=== PATIENT | female | born 1940 | race Caucasian/White ===

== ENCOUNTER 2025-04-16 09:10 | Inpatient (IN) | payer MEDICARE, OTHER ==
[~2025-04-16] VITALS: Ht 172.7 cm; Wt 68.0 kg
[2025-04-16] MEDS: HYDROMORPHONE 1 MG/1 ML DISP.SYRIN IV ONE (12:06)
[2025-04-16] MEDS ORDERED: HYDROCODONE/APAP 10-325 MG TABLET ONE (12:25)
[2025-04-16] MEDS: HYDROCODONE/APAP 10-325 MG TABLET PO ONE (12:29)
[2025-04-16 13:50] VITALS: BP 135/74; TEMP 97.6; O2SAT 98
[2025-04-16] MEDS ORDERED: ASPI81TA31 PO (14:49)
[2025-04-16] MEDS ORDERED: AMLO5TAB4 PO (14:49)
[2025-04-16] MEDS ORDERED: CETI10CA8 PO (14:49)
[2025-04-16] MEDS ORDERED: ESCI20TA PO (14:50)
[2025-04-16] MEDS ORDERED: TRAZ-182 PO (14:50)
[2025-04-16] MEDS ORDERED: ROSU5TAB13 PO (14:50)
[2025-04-16] MEDS ORDERED: DONE10TA44 PO (14:50)
[2025-04-16] MEDS ORDERED: HYDR-894 PO ×2 (14:50)
[2025-04-16] MEDS ORDERED: MULT-225 PO (14:50)
[2025-04-16] MEDS ORDERED: DIVA125C5 PO (14:50)
[2025-04-16] MEDS ORDERED: [UNRECOGNIZED DRUG - CODE] PO (14:50)
[2025-04-16] MEDS ORDERED: FOLI1TAB27 PO (14:50)
[2025-04-16] MEDS ORDERED: ALBU0.63 NEB (14:50)
[2025-04-16] MEDS ORDERED: ONDA4TAB5 PO (14:50)
[2025-04-16] MEDS ORDERED: ONDANSETRON 4 MG/2 ML VIAL IV PRN (16:00)
[2025-04-16] MEDS ORDERED: MAGNESIUM HYDROXIDE 30 ML LIQUID UDC PO PRN (16:00)
[2025-04-16] MEDS ORDERED: REMEDY ESSENTIAL ZINC PASTE 113 GM TP PRN (16:00)
[2025-04-16] MEDS ORDERED: ACETAMINOPHEN 325 MG TABLET PO PRN (16:00)
[2025-04-16] MEDS ORDERED: ZOLPIDEM 5 MG TABLET PO PRN (16:00)
[2025-04-16] MEDS ORDERED: ESCI5TAB16 PO (16:51)
[2025-04-16] MEDS ORDERED: ESOM40CA52 PO (16:51)
[2025-04-16] MEDS ORDERED: ONDA8TAB13 PO (16:52)
[2025-04-16] MEDS ORDERED: ALBU2.5V38 NEB (16:54)
[2025-04-16] MEDS ORDERED: HYDR-500 PO (16:57)
[2025-04-16] MEDS ORDERED: ALBUTEROL SULFATE 2.5 MG/3 ML NEBU NEB PRN (18:30)
[2025-04-16 19:25] VITALS: BP 123/69; TEMP 97.7; O2SAT 95
[2025-04-16] MEDS ORDERED: GUAIFENESIN/DEXTROMETHORPHAN 5 ML UDC PO PRN (20:00)
[2025-04-16] MEDS: ENOXAPARIN SODIUM 40 MG/0.4 ML DISP.SYRIN SQ SCH (21:00)
[2025-04-16 21:53] VITALS: BP 123/69; TEMP 97.7; O2SAT 95
[2025-04-16] MEDS: TRAZODONE 50 MG TABLET PO SCH (22:04)
[2025-04-16] MEDS: ATORVASTATIN 10 MG TABLET PO SCH (22:04)
[2025-04-17 04:20] VITALS: BP 112/66; TEMP 97.5; O2SAT 98
[2025-04-17] MEDS: PANTOPRAZOLE SODIUM 40 MG TABLET.DR PO SCH (06:50)
[2025-04-17 06:59] LABS: BASOPHILS # (AUTO) 0.1 K/UL (0.0-0.2); BASOPHILS % (AUTO) 0.7 % (0.0-2.0); EOSINOPHILS # (AUTO) 0.9 K/uL (0.0-0.7); EOSINOPHILS % (AUTO) 11.3 % (0.0-7.0); HEMATOCRIT 40.6 % (31.2-41.9); HEMOGLOBIN 13.6 g/dL (10.9-14.3); LYMPHOCYTES # (AUTO) 2.1 K/uL (0.8-4.8); LYMPHOCYTES % (AUTO) 24.9 % (20.5-51.5); MEAN CORPUSCULAR HEMOGLOBIN 31.2 uug (24.7-32.8); MEAN CORPUSCULAR HGB CONC 34 g/dL (32.3-35.6); MEAN CORPUSCULAR VOLUME 93.1 fL (75.5-95.3); MONOCYTES # (AUTO) 0.9 K/uL (0.1-1.30); MONOCYTES % (AUTO) 10.9 % (0.0-11.0); NEUTROPHILS # (AUTO) 4.3 K/uL (1.8-8.9); NEUTROPHILS % (AUTO) 52.2 % (38.5-71.5); PLATELET COUNT (AUTO) 202 K/uL (179-408); RED BLOOD CELL COUNT(AUTO) 4.36 MIL/uL (3.63-4.92); RED CELL DISTRIBUTION WIDTH 14.7 % (12.3-17.7); WHITE BLOOD COUNT (AUTO) 8.3 K/uL (3.8-11.8)
[2025-04-17 07:02] LABS: DIFFERENTIAL COMMENT 1
[2025-04-17 07:08] LABS: CALCIUM 9.3 mg/dL (8.5-10.1); CARBON DIOXIDE 26 mmol/L (21-32); CHLORIDE 107 mmol/L (98-107); CREATININE 0.8 mg/dL (0.6-1.3); GLUCOSE 93 mg/dL (74-106); PHOSPHOROUS 4.4 mg/dL (2.5-4.9); POTASSIUM 3.9 mmol/L (3.5-5.1); SODIUM SERUM 142 mmol/L (136-145); UREA NITROGEN, BLOOD 14 mg/dL (7-18)
[2025-04-17 07:19] LABS: THYROID STIMULATING HORMONE 4.767 mIU/mL (0.358-3.740)
[2025-04-17] MEDS: ASPIRIN 81 MG TAB.CHEW PO SCH (08:20)
[2025-04-17] MEDS: AMLODIPINE 5 MG TABLET PO SCH (08:21)
[2025-04-17] MEDS: DIVALPROEX SPRINKLE 125 MG CAP.SPRINK PO SCH (08:21)
[2025-04-17] MEDS: CETIRIZINE HCL 10 MG TABLET PO SCH (08:21)
[2025-04-17] MEDS: ESCITALOPRAM OXALATE 10 MG TABLET PO SCH (08:21)
[2025-04-17] MEDS: MULTIVITAMINS,THERAPEUTIC TABLET PO SCH (08:21)
[2025-04-17] MEDS: DONEPEZIL 10 MG TABLET PO SCH (08:21)
[2025-04-17] MEDS ORDERED: PANTOPRAZOLE SODIUM 40 MG TABLET.DR PO SCH (09:00)
[2025-04-17] MEDS ORDERED: FOLIC ACID 1 MG TABLET PO SCH (09:00)
[2025-04-17] MEDS ORDERED: Medication Not On Formulary EA (Escitalopram Oxalate 1 TAB) PO SCH (09:00)
[2025-04-17] MEDS ORDERED: Medication Not On Formulary EA (Multivitamins (Multiple Vitamins) 1 TAB) PO SCH (09:00)
[2025-04-17] MEDS ORDERED: ONDANSETRON PO SCH (09:00)
[2025-04-17] MEDS ORDERED: ONDANSETRON ODT 4 MG TAB.RAPDIS SL SCH ×2 (09:00)
[2025-04-17] MEDS ORDERED: ESOMEPRAZOLE MAGNESIUM PO SCH (09:00)
[2025-04-17 11:33] VITALS: BP 119/67; TEMP 98.1; O2SAT 94
[2025-04-17] MEDS: FOLIC ACID 1 MG TABLET PO SCH (13:32)
[2025-04-17 15:34] VITALS: BP 120/66; TEMP 97.6; O2SAT 94
[2025-04-17 19:21] VITALS: BP 100/57; TEMP 97.9; O2SAT 92
[2025-04-17] MEDS: HYDROCODONE/APAP 5-325MG TABLET PO PRN (20:19)
[2025-04-18 05:58] VITALS: BP 99/64; TEMP 98.2; O2SAT 93
[2025-04-18 06:45] LABS: BASOPHILS # (AUTO) 0.1 K/UL (0.0-0.2); BASOPHILS % (AUTO) 0.6 % (0.0-2.0); EOSINOPHILS % (AUTO) 9.9 % (0.0-7.0); HEMATOCRIT 39.8 % (31.2-41.9); HEMOGLOBIN 13.2 g/dL (10.9-14.3); LYMPHOCYTES # (AUTO) 2.8 K/uL (0.8-4.8); LYMPHOCYTES % (AUTO) 26.5 % (20.5-51.5); MEAN CORPUSCULAR HEMOGLOBIN 30.8 uug (24.7-32.8); MEAN CORPUSCULAR HGB CONC 33 g/dL (32.3-35.6); MEAN CORPUSCULAR VOLUME 92.8 fL (75.5-95.3); MONOCYTES # (AUTO) 1.1 K/uL (0.1-1.30); MONOCYTES % (AUTO) 10.4 % (0.0-11.0); NEUTROPHILS # (AUTO) 5.5 K/uL (1.8-8.9); NEUTROPHILS % (AUTO) 52.6 % (38.5-71.5); PLATELET COUNT (AUTO) 203 K/uL (179-408); RED BLOOD CELL COUNT(AUTO) 4.29 MIL/uL (3.63-4.92); RED CELL DISTRIBUTION WIDTH 14.7 % (12.3-17.7); WHITE BLOOD COUNT (AUTO) 10.5 K/uL (3.8-11.8)
[2025-04-18 06:52] LABS: DIFFERENTIAL COMMENT 1
[2025-04-18 07:14] LABS: CALCIUM 8.9 mg/dL (8.5-10.1); CARBON DIOXIDE 27 mmol/L (21-32); CHLORIDE 105 mmol/L (98-107); CREATININE 0.8 mg/dL (0.6-1.3); GLUCOSE 92 mg/dL (74-106); MAGNESIUM 2.1 mg/dL (1.8-2.4); PHOSPHOROUS 4.8 mg/dL (2.5-4.9); POTASSIUM 4.1 mmol/L (3.5-5.1); SODIUM SERUM 140 mmol/L (136-145); UREA NITROGEN, BLOOD 23 mg/dL (7-18)
[2025-04-18] MEDS: ENSURE WITH FIBER 237 ML LIQUID (CHOCOLATE) PO SCH (09:20)
[2025-04-18 11:48] VITALS: BP 130/72; TEMP 98.1; O2SAT 94
[2025-04-18 15:40] VITALS: BP 123/67; TEMP 97.9; O2SAT 94
[2025-04-18 19:00] VITALS: BP 113/62; TEMP 97.6; O2SAT 95
[2025-04-19 06:00] VITALS: BP 130/72; TEMP 98.1; O2SAT 94
[2025-04-19] MEDS: MUPIROCIN 2% OINT 22 GM TUBE NS SCH (09:25)
[2025-04-19] MEDS ORDERED: HYDR-3972 PO (09:33)
[2025-04-19 11:11] VITALS: BP 125/73; TEMP 99.2; O2SAT 94
== END 2025-04-19 15:15 | disposition home health service (06) | DRG 605 ==
LOC: ER 09:10 → MEDSURG3 15:35
PROVIDERS: ADMIT Student in an Organized Health Care Education/Training Program; ATTEND Student in an Organized Health Care Education/Training Program
PROC: 2W3PX1Z Immobilization of Left Upper Leg using Splint (ICD-10-PCS; principal; 2025-04-16)
DX: S80.02XA Contusion of left knee, initial encounter (principal); F03.93 Unspecified dementia, unspecified severity, with mood disturbance; F03.94 Unspecified dementia, unspecified severity, with anxiety; R26.2 Difficulty in walking, not elsewhere classified; S02.2XXA Fracture of nasal bones, initial encounter for closed fracture; W18.30XA Fall on same level, unspecified, initial encounter; Y92.099 Unspecified place in other non-institutional residence as the place of occurrence of the external cause; Z22.322 Carrier or suspected carrier of Methicillin resistant Staphylococcus aureus; K21.9 Gastro-esophageal reflux disease without esophagitis; I10 Essential (primary) hypertension; F32.A Depression, unspecified; Z79.82 Long term (current) use of aspirin; Z79.899 Other long term (current) drug therapy; Z88.0 Allergy status to penicillin
CPT/HCPCS: 36415; 70450; 70486; 72125; 73560; 73700; 83735; 84100; 84443; 85025; A4606; A4663; G0378; J1650